=== PATIENT | male | born 1990 ===

== ENCOUNTER 2018-03-01 12:16 | Emergency (ER) | payer SELFPAY ==
[2018-03-01] MEDS ORDERED: ONDANSETRON 4 MG/2 ML VIAL IVP ONE (12:30)
[2018-03-01] MEDS ORDERED: NS(*) 0.9% 1000 ML BAG 1,000 ML IV ONE (12:30)
[2018-03-01] MEDS ORDERED: KETOROLAC 30 MG/ML VIAL IVP ONE (12:30)
[2018-03-01 12:49] LABS: PLATELET COUNT, AUTOMATED 282 K/uL (150-450)
[2018-03-01] MEDS ORDERED: IOPAMIDOL 76% 75 ML INFUS BTL 75 ML ONE (12:56)
[2018-03-01] MEDS ORDERED: MORPHINE 4 MG/ML SDV IVP ONE (13:30)
--- NOTE | 2018-03-01 13:45 | ER Report ---
History and Physical Time Seen By MD: 12:20 Hx. of Stated Complaint: LEFT SIDED FLANK PAIN THAT STARTED WHILE DRIVING ABOUT 20-30 MINS AGO HPI/ROS CHIEF COMPLAINT: Left flank pain HISTORY OF PRESENT ILLNESS: Patient is a 27-year-old male who presents to ED with complaint of left flank pain that started this morning. He states that he did have an episode of nausea while driving as well. He denies any vomiting. He also denies any dysuria, hematuria, increased urinary frequency. He has not noted any diarrhea or constipation. Patient states that this feels exactly like his previous kidney stone. He states that he has had 2 kidney stones in the past. Last was 2 years ago. Patient denies any fever. REVIEW OF SYSTEMS: Constitutional: No fever, no chills. Cardiovascular: No chest pain, no palpitations. Respiratory: No cough, no shortness of breath. Gastrointestinal: See history of present illness. Genitourinary: See history of present illness. Musculoskeletal: No back pain. Skin: No rashes. Neurological: No headache. Allergies: Coded Allergies: No Known Drug Allergies (Unverified , 03/01/18) Home Meds No Active Prescriptions or Reported Meds Reviewed Nurses Notes: Yes Old Medical Records Reviewed: Yes Hx Substance Use Disorder: No Hx Alcohol Use: No Constitutional Vital Sign - Last 24 Hours 03/01/18 12:25 Temp 97.9 Pulse 90 Resp 18 B/P (MAP) 115/72 Pulse Ox 93 Physical Exam General Appearance: The patient is alert, has no immediate need for airway protection and no signs of toxicity. Patient appears to be in moderate acute distress ENT, Mouth: Mucous membranes are moist. Respiratory: There are no retractions, lungs are clear to auscultation. Cardiovascular: Regular rate and rhythm. Gastrointestinal: Abdomen is soft and non tender, no masses, bowel sounds normal. There is left CVA tenderness with percussion. Skin: Warm and dry, no rashes. Musculoskeletal: Neck is supple non tender. Extremities are nontender, nonswollen and have full range of motion. DIFFERENTIAL DIAGNOSIS: After history and physical exam differential diagnosis was considered for flank pain including but not limited to musculoskeletal causes, kidney stone, pyelonephritis, shingles, and intra-abdominal causes such as diverticulitis and appendicitis. Medical Decision Making Data Points Result Diagram: 03/01/18 1237 03/01/18 1237 Laboratory Hematology Test 03/01/18 12:21 03/01/18 12:37 Urine Color Yellow Urine Clarity Clear Urine pH 5.0 pH (4.8-9.5) Urine Specific [place] 1.029 Urine Protein 30 mg/dL (NEGATIVE) Urine Glucose (UA) Negative mg/dL (NEGATIVE) Urine Ketones Negative mg/dL (NEGATIVE) Urine Blood Moderate (NEGATIVE) Urine Nitrite Negative (NEGATIVE) Urine Bilirubin Negative (NEGATIVE) Urine Urobilinogen 2.0 mg/dL (0.2-1.9) Urine Leukocyte Esterase Negative (NEGATIVE) Urine RBC 103 /HPF (0-2/HPF) Urine WBC 1 /HPF (0-5/HPF) Urine Squamous Epithelial Cells None /LPF (</=FEW) Urine Bacteria Negative /HPF (NONE-FEW) Urine Mucus Few /HPF (NONE-FEW) Red Blood Count 5.38 M/uL (4.00-5.60) Mean Corpuscular Volume 73.5 fL (80.0-96.0) Mean Corpuscular Hemoglobin 24.3 pg (26.0-33.0) Mean Corpuscular Hemoglobin Concent 33.1 g/dL (32.0-36.0) Red Cell Distribution Width 15.2 % (11.5-14.5) Mean Platelet Volume 8.9 fL (7.2-11.1) Neutrophils (%) (Auto) 50.7 % (39.4-72.5) Lymphocytes (%) (Auto) 33.5 % (17.6-49.6) Monocytes (%) (Auto) 8.3 % (4.1-12.4) Eosinophils (%) (Auto) 6.3 % (0.4-6.7) Basophils (%) (Auto) 1.2 % (0.3-1.4) Nucleated RBC Relative Count (auto) 0.1 /100WBC Neutrophils # (Auto) 4.1 K/uL (2.0-7.4) Lymphocytes # (Auto) 2.7 K/uL (1.3-3.6) Monocytes # (Auto) 0.7 K/uL (0.3-1.0) Eosinophils # (Auto) 0.5 K/uL (0.0-0.5) Basophils # (Auto) 0.1 K/uL (0.0-0.1) Nucleated RBC Absolute Count (auto) 0.01 K/uL Sodium Level 143 mmol/L (137-145) Potassium Level 3.7 mmol/L (3.5-5.0) Chloride Level 103 mmol/L (98-107) Carbon Dioxide Level 27 mmol/L (22-30) Blood Urea Nitrogen 15 mg/dl (9-21) Creatinine 0.90 mg/dl (0.66-1.25) Glomerular Filtration Rate Calc > 60.0 Random Glucose 112 mg/dl (75-110) Calcium Level 9.4 mg/dl (8.4-10.2) Total Bilirubin 0.4 mg/dl (0.2-1.3) Aspartate Amino Transf (AST/SGOT) 31 U/L (0-35) Alanine Aminotransferase (ALT/SGPT) 49 U/L (0-56) Alkaline Phosphatase 113 U/L (0-126) Total Protein 8.2 gm/dl (6.3-8.2) Albumin 4.1 g/dl (3.5-5.0) Lipase 180 U/L (23-300) Chemistry Test 03/01/18 12:21 03/01/18 12:37 Urine Color Yellow Urine Clarity Clear Urine pH 5.0 pH (4.8-9.5) Urine Specific [place] 1.029 Urine Protein 30 mg/dL (NEGATIVE) Urine Glucose (UA) Negative mg/dL (NEGATIVE) Urine Ketones Negative mg/dL (NEGATIVE) Urine Blood Moderate (NEGATIVE) Urine Nitrite Negative (NEGATIVE) Urine Bilirubin Negative (NEGATIVE) Urine Urobilinogen 2.0 mg/dL (0.2-1.9) Urine Leukocyte Esterase Negative (NEGATIVE) Urine RBC 103 /HPF (0-2/HPF) Urine WBC 1 /HPF (0-5/HPF) Urine Squamous Epithelial Cells None /LPF (</=FEW) Urine Bacteria Negative /HPF (NONE-FEW) Urine Mucus Few /HPF (NONE-FEW) White Blood Count 8.0 k/uL (4.5-11.0) Red Blood Count 5.38 M/uL (4.00-5.60) Hemoglobin 13.1 g/dL (14.0-18.0) Hematocrit 39.5 % (42.0-52.0) Mean Corpuscular Volume 73.5 fL (80.0-96.0) Mean Corpuscular Hemoglobin 24.3 pg (26.0-33.0) Mean Corpuscular Hemoglobin Concent 33.1 g/dL (32.0-36.0) Red Cell Distribution Width 15.2 % (11.5-14.5) Platelet Count 282 K/uL (150-450) Mean Platelet Volume 8.9 fL (7.2-11.1) Neutrophils (%) (Auto) 50.7 % (39.4-72.5) Lymphocytes (%) (Auto) 33.5 % (17.6-49.6) Monocytes (%) (Auto) 8.3 % (4.1-12.4) Eosinophils (%) (Auto) 6.3 % (0.4-6.7) Basophils (%) (Auto) 1.2 % (0.3-1.4) Nucleated RBC Relative Count (auto) 0.1 /100WBC Neutrophils # (Auto) 4.1 K/uL (2.0-7.4) Lymphocytes # (Auto) 2.7 K/uL (1.3-3.6) Monocytes # (Auto) 0.7 K/uL (0.3-1.0) Eosinophils # (Auto) 0.5 K/uL (0.0-0.5) Basophils # (Auto) 0.1 K/uL (0.0-0.1) Nucleated RBC Absolute Count (auto) 0.01 K/uL Glomerular Filtration Rate Calc > 60.0 Calcium Level 9.4 mg/dl (8.4-10.2) Total Bilirubin 0.4 mg/dl (0.2-1.3) Aspartate Amino Transf (AST/SGOT) 31 U/L (0-35) Alanine Aminotransferase (ALT/SGPT) 49 U/L (0-56) Alkaline Phosphatase 113 U/L (0-126) Total Protein 8.2 gm/dl (6.3-8.2) Albumin 4.1 g/dl (3.5-5.0) Lipase 180 U/L (23-300) Urinalysis Test 03/01/18 12:21 Urine Color Yellow Urine Clarity Clear Urine pH 5.0 pH (4.8-9.5) Urine Specific [place] 1.029 Urine Protein 30 mg/dL (NEGATIVE) Urine Glucose (UA) Negative mg/dL (NEGATIVE) Urine Ketones Negative mg/dL (NEGATIVE) Urine Blood Moderate (NEGATIVE) Urine Nitrite Negative (NEGATIVE) Urine Bilirubin Negative (NEGATIVE) Urine Urobilinogen 2.0 mg/dL (0.2-1.9) Urine Leukocyte Esterase Negative (NEGATIVE) Urine RBC 103 /HPF (0-2/HPF) Urine WBC 1 /HPF (0-5/HPF) Urine Squamous Epithelial Cells None /LPF (</=FEW) Urine Bacteria Negative /HPF (NONE-FEW) Urine Mucus Few /HPF (NONE-FEW) EKG/Imaging Imaging CT Abdomen/Pelvis: IMPRESSION: 1. Mild left hydronephrosis due to a proximal 4 mm left ureteral stone. 2. Nonobstructing right renal calculi. Report Dictated By: Marcello Barillas at 03/01/2018 1:36 PM Report E-Signed By: Marcello Barillas at 03/01/2018 1:48 PM ED Course/Re-evaluation ED Course Will obtain labs, UA, CT scan. Patient was initially given 15 mg IV ketorolac with 4 mg IV Zofran with good pain relief. After CT scan was completed patient was having some recurrence of pain and was given 4 mg IV morphine with good pain relief. 03/01/2018 1:57:42 pm - discussed all labs and imaging with patient. It appears that she does have a 4 mm stone noted left middle ear. Discussed with him that we'll send him home with strainer, pain medication, Flomax, urology referral. Decision to Disposition Date: Mar 01, 2018 Decision to Disposition Time: 13:45 Depart Departure Latest Vital Signs Vital Signs Date Time Temp Pulse Resp B/P (MAP) Pulse Ox O2 Delivery O2 Flow Rate FiO2 03/01/18 12:25 97.9 90 18 115/72 93 Impression: Primary Impression: Left ureteral stone Condition: Improved Disposition: HOME OR SELF-CARE Referrals: MARAH ALBERT MD New Scripts Hydrocodone Bit/Acetaminophen (NORCO 5-325 TABLET) 1 Each Tablet 1 EACH PO Q4-6H Y for PAIN, #12 TAB Prov: JOSE ORANTES PA-C 03/01/18 Tamsulosin Hcl (FLOMAX) 0.4 Mg Cap.er.24h 0.4 MG PO DAILY for 7 Days, #7 CAP Prov: JOSE ORANTES PA-C 03/01/18 Patient Instructions: Kidney Stones (ED) Additional Instructions: Stay well-hydrated. Strain urine. Follow-up with urology or primary care provider in 2-3 days. If having any worsening or concerning symptoms may return to the emergency department. JOSE ORANTES PA-C Mar 01, 2018 13:45
--- NOTE | 2018-03-01 13:51 | RADIOLOGY IMAGING REPORT ---
FACILITY: [facility] PATIENT NAME: Stephane Sanderson : 1990 MR: [id number] V: [id number] EXAM DATE: ORDERING PHYSICIAN: JOSE ORANTES TECHNOLOGIST: Location: [facility] - [place] Patient: Stephane Sanderson : 1990 Visit/Account:[id number] Date of Sevice: 03/01/2018 CT abdomen and pelvis with IV contrast Indication: Left flank pain and hematuria. Comparison: None available. . Technique: Axial CT images were obtained through the abdomen and pelvis during injection of nonioni c iodinated intravenous contrast. Reformatted coronal and sagittal images were also obtained. One of the following dose optimization techniques was utilized in the performance of this exam: Autom ated exposure control; adjustment of the mA and/or kV according to the patient's size; or use of an i terative reconstruction technique. Specific details can be referenced in the facility's radiology C T exam operational policy. Contrast: 75 ml of Isovue-370 IV contrast. Findings: Lower lung lopez: Limited views lower lung field are unremarkable. Liver: No focal parenchymal abnormality of the liver. Biliary: Gallbladder appears unremarkable as well as the intra and extra hepatic biliary system. Pancreas: Normal appearance. Spleen: Normal appearance. Adrenal glands: Unremarkable. Kidneys / retroperitoneum: Left kidney does show mild hydronephrosis. The secondary to a proximal lef t ureteral stone measuring 4 mm. No other discrete left urinary stone is identified. The right kidney does show couple stones in collecting system measuring 2 mm without hydronephrosis. The right ureter shows no stone. The kidneys show no discrete lesions. Bowel / peritoneum / mesenteries: The visualized gastrointestinal tract, including the appendix, with in normal limits. Stomach is unremarkable. No free air, free fluid, fluid collections or areas of inflammation. Tiny umbilical hernia containing fat. Lymph node assessment: No pathologic adenopathy identified. Pelvic structures: Appear unremarkable. Vessels: No significant atherosclerotic calcifications seen throughout a nonaneurysmal abdominal aort a and branches. Musculoskeletal / Body wall: No acute or aggressive osseous abnormality. IMPRESSION: 1. Mild left hydronephrosis due to a proximal 4 mm left ureteral stone. 2. Nonobstructing right renal calculi. Report Dictated By: Marcello Barillas at 03/01/2018 1:36 PM Report E-Signed By: Marcello Barillas at 03/01/2018 1:48 PM WSN:[id number]
[2018-03-01 14:00] VITALS: BP 109/73
[2018-03-01] MEDS ORDERED: HYDR-4309 PO (14:00)
[2018-03-01] MEDS ORDERED: TAMS0.4C25 PO (14:00)
== END 2018-03-01 14:25 | disposition home or self-care (01) ==
LOC: ER 12:24
DX: N20.1 Calculus of ureter (principal)
CPT/HCPCS: 74177; 81001; 83690; 85025; 96361; 96374; 96375; 99284; J1885; J2270; J2405; J7030; Q9967; 82040; 82247; 82310; 82374; 82435; 82565; 82947; 84075; 84132; 84155; 84295; 84450; 84460; 84520